=== PATIENT | female | born 1985 | race Caucasian/White ===

== ENCOUNTER 2021-07-14 23:27 | Emergency (ER) | payer OTHER ==
[~2021-07-14] VITALS: Ht 157.5 cm; Wt 73.5 kg
[~2021-07-14 23:27] MED LIST: BUPROPION; MEDROLDOSEPACK PO; NEXIUM; PROVENTIL INH; ULTRAM 50MG TAB50 MG PO; ZOFRAN4 MG PO; ZPAK PO
[2021-07-15 00:20] VITALS: BP 121/83
[2021-07-15] MEDS ORDERED: OMEPRAZOLE 20 M20 M1 PO (00:25)
[2021-07-15 00:53] LABS: URINE BILIRUBIN NEGATIVE (Negative); URINE BLOOD NEGATIVE (Negative); URINE CLARITY CLEAR; URINE COLOR YELLOW; URINE GLUCOSE-RANDOM NEGATIVE (Negative); URINE KETONES NEGATIVE (Negative); URINE LEUKOCYTES-REFLEX NEGATIVE (Negative); URINE NITRITE-REFLEX NEGATIVE (Negative); URINE PROTEIN NEGATIVE (Negative); URINE SPECIFIC GRAVITY <= 1.005 (1.005-1.030); URINE UROBILINOGEN 0.2 E.U./dl (0.2-1.0)
--- NOTE | 2021-07-15 10:44 | EKG ---
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
== END 2021-07-15 02:10 | disposition left against medical advice (07) ==
LOC: M.ERS 23:27
PROVIDERS: Emergency Medicine
DX: R10.9 Unspecified abdominal pain (principal); R11.2 Nausea with vomiting, unspecified; R07.89 Other chest pain; Z53.21 Procedure and treatment not carried out due to patient leaving prior to being seen by health care provider